=== PATIENT | male | born 1955 | race Caucasian/White ===

== ENCOUNTER 2022-12-19 14:13 | Emergency (ER) | payer MEDICARE ==
[2022-12-19] MEDS ORDERED: Adacel Vial IM ONE ×2 (14:31→14:38)
[2022-12-19 14:38] VITALS: BP 149/90; PULSE 57; O2SAT 96
--- NOTE | 2022-12-19 14:54 | ERPHSYRPT ---
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 Pt sent from clinic due to bleeding. He is R handed and is in minimal pain. Tetanus is not up to date and will be given. He is in minimal pain. No other injuries at this time. Occurred: days ago (2 days) Method of Injury: other (Dress Designer vs L 2nd dorsal digit) Severity of Pain-Max: mild Severity of Pain-Current: mild Extremities Pain Location: 2nd finger: left Modifying Factors: Improves With: movement Associated Symptoms: none Allergies/Adverse Reactions: Penicillins Allergy (Verified 12/19/22 14:39) Home Medications: Amlodipine Besylate 5 mg PO DAILY 12/19/22 [History] Hx Tetanus, Diphtheria Vaccination/Date Given: No (6-8 years ago) Travel Risk - International Travel Have you traveled outside of the country in past 3 weeks: No - Coronavirus Screening Are you exhibiting any of the following symptoms?: No Close contact with a COVID-19 positive Pt in past 14-21 Days: No - Vaccine Status Have you recieved a Covid-19 vaccination: No - Review of Systems Constitutional: No Symptoms Eyes: No Symptoms Ears, Nose, & Throat: No Symptoms Respiratory: No Symptoms Cardiac: No Symptoms Abdominal/Gastrointestinal: No Symptoms Genitourinary Symptoms: No Symptoms Neurological: No Symptoms Psychological: No Symptoms Endocrine: No Symptoms Hematologic/Lymphatic: No Symptoms Immunological/Allergic: No Symptoms - Past Medical History Pertinent Past Medical History: Yes Cardiac History: Hypertension Psycho-Social History: Anxiety - Past Surgical History Past Surgical History: Yes Musculoskeletal: Orthopedic Surgery Other Surgical History: shoulder surgery - Social History Smoking Status: Never smoker Exposure to second hand smoke: No Drug Use: none Patient Lives Alone: No - Nursing Vital Signs Nursing Vital Signs: Initial Vital Signs Temperature 98.3 F 12/19/22 14:17 Pulse Rate 57 L 12/19/22 14:17 Blood Pressure 149/90 12/19/22 14:17 O2 Sat by Pulse Oximetry 96 12/19/22 14:17 Pain Scale Pain Intensity 0 Hypertensive/Mildly Nate - Physical Exam General Appearance: no apparent distress Eyes, Ears, Nose, Throat Exam: normal ENT inspection Neck Exam: normal inspection Cardiovascular/Respiratory Exam: normal breath sounds, heart sounds normal, bradycardia Abdominal Exam: non-tender, soft Back Exam: normal inspection, normal range of motion, No CVA tenderness Shoulder Exam: normal inspection Elbow/Forearm Exam: normal inspection Wrist Exam: normal inspection Hand Exam: abrasions (Dorsal abrasion L dorsal 2nd digit/FROM/Good distal capillary return and sensation/No evidence of tendon injury/Good hemostasis/Some grinder set up operator universal dust embedded in wound) Neuro/Tendon Exam: normal sensation, normal motor functions, normal tendon functions, responds to pain, no evidence tendon injury, No motor deficit, No sensory deficit Mental Status Exam: alert, oriented x 3, cooperative Skin Exam: normal color, warm, dry SpO2 Interpretation: normal SpO2: 96 O2 Delivery: Room Air - Course Nursing assessment & vital signs reviewed: Yes Ordered Tests: Medication Summary Discontinued Medications Generic Name Dose Route Start Last Admin Trade Name Freq PRN Reason Stop Dose Admin Diphtheria/Tetanus/Acell Pertussis 0.5 ml 12/19/22 14:31 12/19/22 14:39 Tdap --Diph,Pertuss(Acell),Tet Vac/Pf 0.5 Ml Vial IM 12/19/22 14:32 0.5 ml .ONCE ONE Administration Diphtheria/Tetanus/Acell Pertussis Confirm 12/19/22 14:38 Tdap --Diph,Pertuss(Acell),Tet Vac/Pf 0.5 Ml Vial Administered 12/19/22 14:39 Dose 0.5 ml IM .STK-MED ONE - Progress Progress: improved Progress Note: 12/19/22 15:00 Nursing note and vital signs reviewed No food or housing insecurities noted Tdap given Abrasion cleansed and dressed per nursing/NVI Pt advised on signs of infection 12/19/22 15:43 Counseled pt/family regarding: diagnosis, need for follow-up Medical Desision Making - Risk of complications Low Risk: Low risk of morbidity from additional dx testing or treatment - Departure Departure Disposition: Home Clinical Impression: Abrasion, finger w/o infection Condition: Stable Critical Care Time: No Instructions: Wound Care (DC) Additional Instructions: Wash twice a day with soap/water Watch for signs of infection-increasing redness/increasing pain/any pus/temperature greater than 100.5
== END 2022-12-19 15:05 | disposition home or self-care (01) ==
LOC: ED 14:13
DX: S60.411A Abrasion of left index finger, initial encounter (principal); W31.1XXA Contact with metalworking machines, initial encounter; I10 Essential (primary) hypertension; Z79.899 Other long term (current) drug therapy; Z28.310 Unvaccinated for COVID-19
CPT/HCPCS: 90471; 90715; 99282

== ENCOUNTER 2025-07-15 19:56 | Emergency (ER) | payer MEDICARE ==
--- NOTE | 2025-07-15 20:02 | ERPHSYRPT ---
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 Reyes. Patient was using a knife to cut zip ties prior to arrival and accidentally cut his left thumb dorsal laterally. He was unable to get the bleeding to stop. He has full function of the thumb. His tetanus status is up-to-date. Patient has a history of hypertension and anxiety. Timing/Duration: today Quality: painful Severity: mild Location: hands (To moderate left hand thumb) Associated Symptoms: denies symptoms Allergies/Adverse Reactions: Penicillins Allergy (Verified 07/15/25 20:07) Home Medications: Amlodipine Besylate 5 mg PO DAILY 12/19/22 [History] Aspirin EC 81 mg [Ecotrin 81 mg] 81 mg PO DAILY 07/15/25 [History] Hydrochlorothiazide 25 mg [hydroDIURIL 25 MG] 25 mg PO DAILY 07/15/25 [History] Rosuvastatin Calcium 10 mg PO DAILY 07/15/25 [History] Valsartan 160 mg PO BID 07/15/25 [History] Hx Tetanus, Diphtheria Vaccination/Date Given: No (6-8 years ago) Travel Risk - International Travel Have you traveled outside of the country in past 3 weeks: No - Emerging Infectious Disease Are you exhibiting symptoms associated with any current EIDs: No - Review of Systems Constitutional: No Symptoms Eyes: No Symptoms Ears, Nose, & Throat: No Symptoms Respiratory: No Symptoms Cardiac: No Symptoms Abdominal/Gastrointestinal: No Symptoms Genitourinary Symptoms: No Symptoms Musculoskeletal: Injury (Left thumb skin laceration) Skin: Other (Skin laceration of left thumb) Neurological: No Symptoms Psychological: No Symptoms Endocrine: No Symptoms Hematologic/Lymphatic: No Symptoms Immunological/Allergic: No Symptoms All Other Systems: Reviewed and Negative - Past Medical History Pertinent Past Medical History: Yes Cardiac History: Hypertension Psycho-Social History: Anxiety - Past Surgical History Past Surgical History: Yes Musculoskeletal: Orthopedic Surgery Other Surgical History: shoulder surgery - Social History Smoking Status: Never smoker Exposure to second hand smoke: No Drug Use: none Patient Lives Alone: No - Nursing Vital Signs Nursing Vital Signs: Initial Vital Signs Pulse Rate 65 07/15/25 20:02 Respiratory Rate 20 07/15/25 20:02 Blood Pressure 162/89 07/15/25 20:02 O2 Sat by Pulse Oximetry 98 07/15/25 20:02 Pain Scale Pain Intensity 0 - Physical Exam General Appearance: no apparent distress, alert, anxiety Eye Exam: PERRL/EOMI, eyes nml inspection Ears, Nose, Throat Exam: normal ENT inspection, moist mucous membranes Neck Exam: normal inspection, non-tender, supple, full range of motion Respiratory Exam: airway intact, No chest tenderness, No respiratory distress Gastrointestinal/Abdomen Exam: No tenderness Rectal Exam: not done Back Exam: normal inspection, normal range of motion, No CVA tenderness, No v ertebral tenderness Extremity Exam: normal range of motion, pelvis stable, lacerations (3 cm skin laceration dorsal lateral aspect left thumb. No foreign body. No tendon inj ury. Neurovascularly intact) Neurologic Exam: alert, oriented x 3, cooperative, marketing manager health communications II-XII nml as tested, nml cerebellar function, nml station & gait, sensation nml Skin Exam: laceration (See above extremity section) SpO2 Interpretation: normal O2 Delivery: Room Air Procedures - Laceration/Wound Repair Left Lateral Dorsal Finger Time of Procedure: 20:30 Wound Location: Left, hand (Dorsal lateral aspect left thumb) Wound Length (cm): 3 Wound Explored: clean (Wound explored to the base in a bloodless field and no foreign body noted) Irrigated: Yes Hibiclens Prep: Yes Anesthesia: 1% Lidocaine Volume Anesthetic (ccs): 5 Wound Repaired With: sutures Suture Size/Type: 3-0, ethilon Number of Sutures: 3 - Course Nursing assessment & vital signs reviewed: Yes Ordered Tests: Medication Summary Discontinued Medications Generic Name Dose Route Start Last Admin Trade Name Freq PRN Reason Stop Dose Admin Bacitracin Zinc 0.9 each 07/15/25 20:21 07/15/25 20:23 Bacitracin Packet 1 Each Pckt TP 07/15/25 20:22 0.9 each STAT ONE Administration Bacitracin Zinc Confirm 07/15/25 20:23 Bacitracin Packet 1 Each Pckt Administered 07/15/25 20:24 Dose 1 each .ROUTE .STK-MED ONE Lidocaine HCl Confirm 07/15/25 20:13 Lidocaine Hcl 1% 20 Ml Mdv 20 Ml Ml Administered 07/15/25 20:14 Dose 10 ml .ROUTE .STK-MED ONE Lidocaine HCl 10 ml 07/15/25 20:21 07/15/25 20:23 Lidocaine Hcl 1% 20 Ml Mdv 20 Ml Ml IJ 07/15/25 20:22 10 ml STAT ONE Administration Tramadol HCl 50 mg 07/15/25 20:50 Tramadol Hcl 50 Mg Tablet PO 07/15/25 20:51 STAT ONE Tramadol HCl 50 mg 07/15/25 20:50 Tramadol Hcl 50 Mg Tablet PO 07/15/25 20:51 STAT ONE - Progress Progress: improved Progress Note: 07/15/25 20:56 My medical decision making and the assignment of low complexity of this patient's medical issue today is based on review of the patient's past medical history, reviewed patient's medication list, reviewed patient drug allergy list, history present notes and physical findings on examination. The workup in this patient does not necessitate radiographic or laboratory studies. Differential diagnosis includes but is not limited to skin laceration, skin abrasion, skin contusion Counseled pt/family regarding: diagnosis, need for follow-up Medical Desision Making - Independent Historian Additional History obtained from: Spouse - Diagnostic Testing Diagnostic test were ordered, analyzed, and reviewed by me: No - Risk of complications Low Risk: Low risk of morbidity from additional dx testing or treatment - Departure Departure Disposition: Home Clinical Impression: Laceration of left thumb Condition: Stable Critical Care Time: No Referrals: MICHELLE REYES DO [Primary Care Provider, [facility]] - Follow up/PCP as directed Additional Instructions: Keep the current dressing in place until 9 PM on 07/16/2025. At that time you may remove the dressing and then rinse the area of repair off with soapy water. Do not scrub the area. Blot dry use a chairlift operator. After drying, apply thin layer of antibiotic ointment of choice and reapply a dressing with pressure. Suture removal in 8 to 10 days. Take your medications as prescribed. Prescriptions: Tramadol HCl 50 mg [Ultram 50 mg] 50 mg PO BID PRN #4 tablet MDD 2 PRN Reason: Moderate To Severe Pain
[2025-07-15] MEDS ORDERED: XYLOCAINE 1% HCL 20 ML MDV ONE (20:13)
[2025-07-15 20:20] VITALS: RESP 20; TEMP 97.2
[2025-07-15] MEDS: BACIGUENT PACKET TP ONE (20:23)
[2025-07-15] MEDS: XYLOCAINE 1% HCL 20 ML MDV IJ ONE (20:23)
[2025-07-15] MEDS ORDERED: BACIGUENT PACKET ONE (20:23)
[2025-07-15] MEDS ORDERED: ULTRAM 50 MG ONE (20:59)
[2025-07-15] MEDS: ULTRAM 50 MG PO ONE ×2 (21:04→21:12)
[2025-07-15] MEDS ORDERED: MOTRIN 600 MG ONE (21:11)
[2025-07-15 21:13] VITALS: BP 139/79; PULSE 59; O2SAT 98
== END 2025-07-15 21:16 | disposition home or self-care (01) ==
LOC: ED 19:56
DX: S61.012A Laceration without foreign body of left thumb without damage to nail, initial encounter (principal); W26.0XXA Contact with knife, initial encounter; I10 Essential (primary) hypertension; Z79.899 Other long term (current) drug therapy